=== PATIENT | male | born 1965 | race Native Hawaiian/Other Pacific Islander ===

== ENCOUNTER 2021-03-01 10:14 | Emergency (ER) | payer OTHER ==
[~2021-03-01] VITALS: Ht 180.3 cm; Wt 127.0 kg
[2021-03-01 10:18] VITALS: TEMP 97.8
[2021-03-01 11:40] VITALS: BP 121/77
== END 2021-03-01 11:40 | disposition home or self-care (01) ==
LOC: ED 10:14
DX: S29.012A Strain of muscle and tendon of back wall of thorax, initial encounter (principal); S76.012A Strain of muscle, fascia and tendon of left hip, initial encounter; V68.5XXA Driver of heavy transport vehicle injured in noncollision transport accident in traffic accident, initial encounter; Y92.89 Other specified places as the place of occurrence of the external cause
CPT/HCPCS: 99283